=== PATIENT | female | born 2000 | race Two or more races ===

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

== ENCOUNTER 2022-02-16 18:12 | Outpatient (CLI) | payer OTHER, MEDICAID | END 2022-02-16 18:13 | disposition critical access hospital (66) | LOC: EMS 18:12 | DX: O99.891 Other specified diseases and conditions complicating pregnancy (principal); N89.8 Other specified noninflammatory disorders of vagina; R11.0 Nausea; R44.8 Other symptoms and signs involving general sensations and perceptions; Z3A.00 Weeks of gestation of pregnancy not specified | CPT/HCPCS: A0425; A0429 ==

== ENCOUNTER 2022-02-16 18:34 | Emergency (ER) | payer OTHER, MEDICAID ==
--- NOTE | 2022-02-16 18:52 | ED Physician Documentation ---
PD HPI ABD PAIN - Stated complaint Stated Complaint: ABD CRAMPING, BACK PAIN, , INGESTED EDIBLE - Chief complaint Chief Complaint: Abd Pain - History obtained from History obtained from: Patient - Additional information Additional information: This is a otherwise healthy with LMP of approximately December 29 who complains of lower back and abdominal cramping starting yesterday. It is not associated with any bleeding or fluid loss. Of note she did use THC edibles earlier today. Review of Systems Constitutional: denies: Fever, Chills GI: reports: Abdominal Pain, Nausea. denies: Vomiting : reports: Dysuria PD PAST MEDICAL HISTORY - Past Surgical History Past Surgical History: No - Present Medications Home Medications: Ambulatory Orders Medication Instructions Recorded Confirmed Azithromycin [Zithromax] 250 mg PO DAILY #6 tablet 07/16/18 - Allergies Allergies/Adverse Reactions: Allergies Allergy/AdvReac Type Severity Reaction Status Date / Time No Known Drug Allergies Allergy Verified 02/16/22 18:48 - Social History Does the pt smoke?: No Smoking Status: Never smoker Does the pt drink ETOH?: No Does the pt have substance abuse?: No - Immunizations Immunizations are current?: Yes - POLST Patient has POLST: No PD ED PE NORMAL - Vitals Vital signs reviewed: Yes - General General: Alert and oriented X 3, Other (Slightly sleepy) - Abdomen Abdomen: Normal bowel sounds, Soft, Other (Mild bilateral lower quadrant tenderness without surgical signs) - Female Female : Other (Utilizing bedside ultrasound I was able to identify a single live intrauterine with a heart rate of 158.) - Neuro Neuro: Alert and oriented X 3, Normal speech Results - Vitals Vitals: Vital Signs - 24 hr 02/16/22 18:45 Temperature 36.9 C Heart Rate 100 Respiratory 16 Rate Blood Pressure 116/67 O2 Saturation 100 Oxygen O2 Source Room air - Labs Labs: Laboratory Tests 02/16/22 02/16/22 02/16/22 19:01 19:01 19:01 WBC 10.3 RBC 4.67 Hgb 13.0 Hct 39.8 MCV 85.2 MCH 27.8 MCHC 32.7 RDW 14.6 Plt Count 337 MPV 10.3 Neut # (Auto) 8.0 H Lymph # (Auto) 1.6 [place] # (Auto) 0.6 Eos # (Auto) 0.1 Baso # (Auto) 0.0 Absolute Nucleated RBC 0.00 Nucleated RBC % 0.0 Sodium 136 Potassium 3.5 Chloride 103 Carbon Dioxide 25 Anion Gap 8.0 BUN 6 Creatinine 0.7 Estimated GFR (MDRD) 108 Glucose 105 H Calcium 8.9 Total Bilirubin 0.6 AST 33 ALT 41 Alkaline Phosphatase 43 Total Protein 7.1 Albumin 3.9 Globulin 3.2 Albumin/Globulin Ratio 1.2 Lipase 27 HCG, Quant 11572.00 PD Medical Decision Making - ED course ED course: 21-year-old presents sleepy after using cannabis. She does have pelvic pain in . No evidence of ectopic . Appendicitis considered but her pain is not lateralizing to the right and she is not very tender. She did not want any medications here which is reasonable. She was nontender on [place] at 8:20 PM prior to discharge. Departure - Departure Disposition: 01 Home, Self Care Clinical Impression: Cannabis intoxication, Pelvic pain affecting Condition: Good Record reviewed to determine appropriate education?: Yes Instructions: ED Abdominal Pain Female Non-Specific Abdominal Pain Comments: If you are considering termination, the closest [facility] is in [place], the phone number is [phone]. Stay with somebody you trust [facility] given that you are intoxicated with marijuana. Abstain from marijuana in the future. Return for new or worsening symptoms. You can call [facility] at [phone] tomorrow for help with counseling and depression treatment.
[2022-02-16 19:07] LABS: BASOPHILS % (AUTO) 0.4 %; EOSINOPHILS # (AUTO) 0.1 10^3/uL (0.0-0.7); EOSINOPHILS % (AUTO) 0.5 %; HCT - HEMATOCRIT 39.8 % (37.0-47.0); LYMPHOCYTES # (AUTO) 1.6 10^3/uL (1.5-3.5); LYMPHOCYTES % (AUTO) 15.1 %; MEAN CORPUSCULAR HEMOGLOBIN 27.8 pg (27.0-31.0); MEAN CORPUSCULAR HGB CONC 32.7 g/dL (32.0-36.0); MEAN CORPUSCULAR VOLUME 85.2 fL (81.0-99.0); MEAN PLATELET VOLUME 10.3 fL (7.9-10.8); MONOCYTES # (AUTO) 0.6 10^3/uL (0.0-1.0); MONOCYTES % (AUTO) 5.5 %; NEUTROPHILS % (AUTO) 78.2 %; PLT - PLATELET COUNT 337 10^3/uL (130-450); RED BLOOD COUNT 4.67 10^6/uL (4.20-5.40); RED CELL DISTRIBUTION WIDTH 14.6 % (12.0-15.0); WHITE BLOOD COUNT 10.3 x10^3/uL (4.8-10.8)
[2022-02-16 19:20] LABS: ALBUMIN 3.9 g/dL (3.2-5.5); ALBUMIN/GLOBULIN RATIO 1.2 (1.0-2.2); BILIRUBIN,TOTAL 0.6 mg/dL (0.2-1.0); CALCIUM 8.9 mg/dL (8.5-10.3); CREATININE 0.7 mg/dL (0.4-1.0); POTASSIUM 3.5 mmol/L (3.5-5.0); TOTAL PROTEIN 7.1 g/dL (6.7-8.2)
[2022-02-16 20:55] VITALS: BP 106/78
== END 2022-02-16 20:56 | disposition home or self-care (01) ==
LOC: EDUNIT# → ED 18:34
DX: O9A.211 Injury, poisoning and certain other consequences of external causes complicating pregnancy, first trimester (principal); T40.715A Adverse effect of cannabis, initial encounter; F12.90 Cannabis use, unspecified, uncomplicated; O99.891 Other specified diseases and conditions complicating pregnancy; M54.50 Low back pain, unspecified; Z3A.00 Weeks of gestation of pregnancy not specified
CPT/HCPCS: 36415; 80053; 83690; 84702; 85025; 99282; 99283

== ENCOUNTER 2023-04-16 22:50 | Emergency (ER) | payer OTHER, MEDICAID ==
[2023-04-16] MEDS: ONDANSETRON ODT 4 MG TABLET TL STA (23:21)
--- NOTE | 2023-04-16 23:31 | XRAY Report ---
PROCEDURE: Chest 1V INDICATIONS: cough, R chest pain TECHNIQUE: One view of the chest was acquired. COMPARISON: Chest radiograph 04/04/2017 FINDINGS: Surgical changes and devices: None. Lungs and pleura: No pleural effusions or pneumothorax. Lungs are clear. Mediastinum: Mediastinal contours appear normal. Heart size is normal. Bones and chest wall: No suspicious bony lesions. Overlying soft tissues appear unremarkable. IMPRESSION: No acute cardiopulmonary process. Reviewed by: Tyson Schofield MD on 04/16/2023 11:29 PM PDT Approved by: Tyson Schofield MD on 04/16/2023 11:29 PM PDT Station ID: [id number]
--- NOTE | 2023-04-16 23:55 | ED Physician Documentation ---
History of Present Illness - Stated complaint Stated Complaint: RT SIDE/CHEST PX, NAUSEA - Chief complaint Chief Complaint: General - History obtained from History obtained from: Patient - Additonal information Additional information: The patient comes to the emergency department chief complaint of right-sided chest pain for approximately 4 weeks with cough. Patient states it started out seeming like an upper respiratory infection, but now she is just had a dry cough for the last several weeks. She states whenever she coughs or takes a deep breath, she has a pain in her right lower chest, stretching into her right flank. The patient denies any fevers or chills. She states she sometimes feels slightly short of breath. No swelling in her lower extremities. The patient is a smoker. No palpitations. No abdominal pain. The patient does note that she celebrated her 23st birthday yesterday and was drinking quite heavily. Today, she woke up nauseated and has been vomiting throughout the day. No diarrhea. No other complaints at this time. PD PAST MEDICAL HISTORY - Past Medical History Past Medical History: No - Past Surgical History Past Surgical History: No - Present Medications Home Medications: Ambulatory Orders Medication Instructions Recorded Confirmed Benzonatate [Tessalon] 200 mg PO TID PRN #15 cap 04/16/23 - Allergies Allergies/Adverse Reactions: Allergies Allergy/AdvReac Type Severity Reaction Status Date / Time No Known Drug Allergies Allergy Verified 04/16/23 23:02 - Social History Does the pt smoke?: No Smoking Status: Never smoker Does the pt drink ETOH?: No Does the pt have substance abuse?: No - Immunizations Immunizations are current?: Yes - POLST Patient has POLST: No PD ED PE NORMAL - Vitals Vital signs reviewed: Yes - General General: Alert and oriented X 3, No acute distress, Well developed/nourished - HEENT HEENT: Atraumatic, PERRL, EOMI, Moist mucous membranes - Neck Neck: Supple, no meningeal sign - Cardiac Cardiac: RRR, No murmur - Respiratory Respiratory: No respiratory distress, Clear bilaterally, Other (No cough noted in the emergency department.) - Abdomen Abdomen: Soft, Non tender, Non distended - Derm Derm: Normal color, Warm and dry, No rash - Extremities Extremities: No deformity, No edema, No calf tenderness / cord - Neuro Neuro: Other (Alert, grossly intact.) - Psych Psych: Normal mood, Normal affect Results - Vitals Vitals: Vital Signs - 24 hr 04/16/23 04/17/23 22:50 00:06 Temperature 37.1 C 36.9 C Heart Rate 96 85 Respiratory 16 16 Rate Blood Pressure 131/97 H 117/65 O2 Saturation 100 99 Oxygen O2 Source Room air - Rads (name of study) Chest x-ray Relevant Findings:: Final report received, See rad report (Negative) PD Medical Decision Making - ED course Complexity details: reviewed results, re-evaluated patient, considered differential, d/w patient ED course: The patient was worked up with a chest x-ray, which was negative. She was treated with ODT Zofran after vomiting in the emergency department. The patient had pain of the right chest which seemed mechanical in nature based on her report, and had a negative lung exam and x-ray. She did not have any symptoms to indicate PE and her cough and chest pain were longstanding. I did not feel any further emergent workup was indicated in the emergency department. We have discussed the need for follow-up and specifically for a discussion with her primary doctor about smoking cessation. We have discussed what should be the self-limited nature of the patient's vomiting. We discussed the usual indications for return. Departure - Departure Disposition: 01 Home, Self Care Clinical Impression: Chest wall pain Cough Qualifiers: Cough type: subacute Qualified Code(s): R05.2 - Subacute cough Vomiting Qualifiers: Vomiting type: bilious vomiting Nausea presence: with nausea Qualified Code(s): R11.14 - Bilious vomiting Condition: Stable Instructions: ED Strain Chest Wall, ED Smoking Cessation, ED Nausea Vomiting Prescriptions: Benzonatate [Tessalon] 200 mg PO TID PRN #15 cap PRN Reason: Cough Comments: Your x-ray looks great. There is no evidence of anything abnormal in your chest. It is not clear why your cough has dragged on, but certainly, smoking is at least partially contributing to this. It is important that you speak with your doctor about getting help with your smoking. The pain in your chest is most likely coming from a strain of the muscles and other structures of your chest wall. It is very common if you have been coughing hard or had a cough for prolonged period of time. The vomiting could be due to one of the many viruses that are going around, but it also could be from drinking heavily yesterday. Either way, this will pass on its own. You have been given a dose of nausea medicine here and should go home, get some rest, and let your stomach settle down overnight. Do not try to eat or drink anything until the morning. In the morning, take only clear liquids and no foods. By clear liquids, we means water, sports drink, electrolyte drinks, or perhaps edna rolan or popsicles. Do not drink any protein drinks or milk. No smoothies or fruit juices until your vomiting has resolved. When you do return to eating, start with simple starches like saltine crackers and Ramen noodles until you are sure your stomach is ready to handle food. However, you should wait until you have gone at least 24 hours without vomiting before you try to eat anything. If you have further concerns about your cough or would like further evaluation, please follow-up with your primary doctor. A prescription for cough medicine has been electronically transmitted to the [facility] pharmacy in [place] and you may pick this up tomorrow if you wish. Forms: PCP List Discharge Date/Time: 04/17/23 00:09
[2023-04-17 00:15] VITALS: BP 117/65; O2SAT 99
== END 2023-04-17 00:09 | disposition home or self-care (01) ==
LOC: ED 22:50
DX: R05.2 Subacute cough (principal); R11.14 Bilious vomiting
CPT/HCPCS: 71045; 99283; Q0162

== ENCOUNTER 2023-04-25 01:09 | Emergency (ER) | payer OTHER, MEDICAID ==
[2023-04-25 01:28] VITALS: BP 121/80; O2SAT 100
--- NOTE | 2023-04-25 01:34 | ED Physician Documentation ---
History of Present Illness - Stated complaint Stated Complaint: SOA,DIZZY - Chief complaint Chief Complaint: Neuro - History obtained from History obtained from: Patient - Additonal information Additional information: The patient comes to the emergency department chief complaint of feeling dizzy, "breathing funny" and having a headache since quitting smoking a couple weeks ago. The patient has been using 14 mg nicotine patches but states that they do not seem to help the symptoms. She states she has been having some mood swings to since quitting smoking. She states she sometimes has some mucus that feels like he needs to be coughed out of her airways, and makes her feel short of breath. However, she is not short of breath now. No other complaints at this time. PD PAST MEDICAL HISTORY - Past Medical History Past Medical History: No - Past Surgical History Past Surgical History: No - Present Medications Home Medications: Ambulatory Orders Medication Instructions Recorded Confirmed No Known Home Medications 04/25/23 04/25/23 - Allergies Allergies/Adverse Reactions: Allergies Allergy/AdvReac Type Severity Reaction Status Date / Time No Known Drug Allergies Allergy Verified 04/25/23 01:22 - Social History Does the pt smoke?: No Smoking Status: Former smoker Does the pt drink ETOH?: No Does the pt have substance abuse?: No - Immunizations Immunizations are current?: Yes - POLST Patient has POLST: No PD ED PE NORMAL - Vitals Vital signs reviewed: Yes - General General: Alert and oriented X 3, No acute distress - HEENT HEENT: Atraumatic, EOMI, Moist mucous membranes - Neck Neck: Supple, no meningeal sign - Cardiac Cardiac: RRR, No murmur - Respiratory Respiratory: No respiratory distress, Clear bilaterally - Abdomen Abdomen: Soft, Non tender, Non distended - Derm Derm: Normal color, Warm and dry, No rash - Extremities Extremities: No deformity, No edema - Neuro Neuro: Other (Alert, grossly intact) - Psych Psych: Normal mood, Normal affect Results - Vitals Vitals: Vital Signs - 24 hr 04/25/23 01:19 Temperature 36.4 C L Heart Rate 87 Respiratory 16 Rate Blood Pressure 121/80 O2 Saturation 100 Oxygen O2 Source Room air PD Medical Decision Making - ED course Complexity details: considered differential, d/w patient ED course: I discussed with the patient that all of the symptoms are to be expected to some degree of after quitting smoking. I reassured her that things will get better, and have encouraged her to reach out to her doctor for any further concerns. Departure - Departure Disposition: 01 Home, Self Care Clinical Impression: Nicotine dependence Qualifiers: Nicotine product type: unspecified Substance use status: uncomplicated Qualified Code(s): F17.200 - Nicotine dependence, unspecified, uncomplicated Headache Qualifiers: Headache type: unspecified Headache chronicity pattern: acute headache Intractability: not intractable Qualified Code(s): R51.9 - Headache, unspecified Dyspnea Qualifiers: Dyspnea type: unspecified Qualified Code(s): R06.00 - Dyspnea, unspecified Condition: Stable Instructions: ED Dyspnea Shortness of Breath, ED Cephalgia Unspecified Comments: Most likely your symptoms are due to stopping smoking. While the nicotine patches help with this, they do not take all of the symptoms away, as they are lower dose than cigarettes. You have made the right decision to stop smoking and should stick with this. Please be sure you are drinking plenty of fluids and you may take ibuprofen and Tylenol if needed for the headache. As far as your sense of shortness of breath, your lungs are clear with good air movement, your oxygen is 100%, and you are breathing and speaking comfortably in the emergency department. There is no evidence of something significantly wrong with your lungs. Forms: PCP List Discharge Date/Time: 04/25/23 01:42
== END 2023-04-25 01:42 | disposition home or self-care (01) ==
LOC: ED 01:09
DX: R51.9 Headache, unspecified (principal); R06.00 Dyspnea, unspecified; F17.200 Nicotine dependence, unspecified, uncomplicated
CPT/HCPCS: 99281; 99282

== ENCOUNTER 2023-09-05 20:36 | Emergency (ER) | payer MEDICAID, OTHER ==
[2023-09-05 21:14] LABS: BASOPHILS # (AUTO) 0.1 10^3/uL (0.0-0.1); BASOPHILS % (AUTO) 0.5 %; EOSINOPHILS # (AUTO) 0.1 10^3/uL (0.0-0.7); EOSINOPHILS % (AUTO) 0.7 %; HCT - HEMATOCRIT 47.7 % (37.0-47.0); HGB - HEMOGLOBIN 15.6 g/dL (12.0-16.0); LYMPHOCYTES # (AUTO) 2.6 10^3/uL (1.5-3.5); LYMPHOCYTES % (AUTO) 24.3 %; MEAN CORPUSCULAR HEMOGLOBIN 28.5 pg (27.0-31.0); MEAN CORPUSCULAR HGB CONC 32.7 g/dL (32.0-36.0); MEAN CORPUSCULAR VOLUME 87.2 fL (81.0-99.0); MEAN PLATELET VOLUME 10.4 fL (7.9-10.8); MONOCYTES # (AUTO) 0.5 10^3/uL (0.0-1.0); MONOCYTES % (AUTO) 4.6 %; NEUTROPHILS # (AUTO) 7.5 10^3/uL (1.5-6.6); NEUTROPHILS % (AUTO) 69.4 %; PLT - PLATELET COUNT 341 10^3/uL (130-450); RED BLOOD COUNT 5.47 10^6/uL (4.20-5.40); RED CELL DISTRIBUTION WIDTH 12.9 % (12.0-15.0); WHITE BLOOD COUNT 10.7 x10^3/uL (4.8-10.8)
[2023-09-05 21:30] LABS: ALBUMIN 4.7 g/dL (3.2-5.5); ALBUMIN/GLOBULIN RATIO 1.6 (1.0-2.2); BILIRUBIN,TOTAL 0.6 mg/dL (0.2-1.0); CALCIUM 10.6 mg/dL (8.5-10.3); CREATININE 0.9 mg/dL (0.6-1.3); POTASSIUM 3.4 mmol/L (3.5-4.5); TOTAL PROTEIN 7.6 g/dL (6.4-8.9)
[2023-09-05] MEDS: SUCRALFATE 1 GM/10 ML UDC PO STA (21:42)
[2023-09-05] MEDS: FAMOTIDINE 20 MG TABLET PO STA (21:42)
[2023-09-05] MEDS: LIDOCAINE VISCOUS 2% 15 ML UDC MM STA (21:42)
[2023-09-05] MEDS: MAG HYDROX/AL HYDROX/SIMETH 30 ML UDC PO STA (21:42)
--- NOTE | 2023-09-05 21:44 | ED Physician Documentation ---
PD HPI ABD PAIN - Stated complaint Stated Complaint: ABD PX - Chief complaint Chief Complaint: Abd Pain - History obtained from History obtained from: Patient - History of Present Illness Timing - onset: Today Timing - duration: Hours (7) Timing - details: Abrupt onset Quality: Aching, Pain Location: Epigastric Associated symptoms: No: Fever, Nausea, Vomiting, Hematemesis, Diarrhea, Constipation, Melena, Hematochezia, Dysuria, Hematuria, Vaginal bleeding, Vaginal dc - Additional information Additional information: 23-year-old female states that she has epigastric abdominal pain for 6 hours. She states it is stabbing/pressure. She states that occurred after having a bowel movement today. No diarrhea. No constipation. No fevers or chills. No nausea or vomiting. She states that she took Imodium but it did not help the pain. Denies any possibility of . No vaginal bleeding or discharge. No recent travel. No recent antibiotics. Review of Systems Constitutional: denies: Fever, Chills GI: denies: Vomiting, Diarrhea Skin: denies: Rash Musculoskeletal: denies: Neck pain, Back pain Neurologic: denies: Headache PD PAST MEDICAL HISTORY - Past Medical History Past Medical History: No Cardiovascular: None Respiratory: None Neuro: None Endocrine/Autoimmune: None GI: None YOUTH COUNSELOR: None : None HEENT: None Psych: None Musculoskeletal: None Derm: None - Past Surgical History Past Surgical History: No - Present Medications Home Medications: Ambulatory Orders Medication Instructions Recorded Confirmed Ondansetron Odt [Zofran] 4 mg TL Q6H PRN #10 tablet 09/05/23 oxyCODONE [Roxicodone] 5 - 10 mg PO Q6H PRN #14 tablet 09/05/23 MDD 6 - Allergies Allergies/Adverse Reactions: Allergies Allergy/AdvReac Type Severity Reaction Status Date / Time No Known Drug Allergies Allergy Verified 09/05/23 20:46 - Social History Does the pt smoke?: No Smoking Status: Never smoker Does the pt drink ETOH?: No Does the pt have substance abuse?: No - Immunizations Immunizations are current?: Yes - POLST Patient has POLST: No PD ED PE NORMAL - Vitals Vital signs reviewed: Yes - General General: Alert and oriented X 3, No acute distress - HEENT HEENT: Moist mucous membranes - Neck Neck: Supple, no meningeal sign - Cardiac Cardiac: RRR, Strong equal pulses - Respiratory Respiratory: No respiratory distress, Clear bilaterally - Abdomen Abdomen: Soft, Non distended, Other (Tender palpation epigastric. No peritoneal signs. No right upper quadrant tenderness. Negative Alvarez sign.) - Back Back: No CVA TTP, No spinal TTP - Derm Derm: Warm and dry - Extremities Extremities: No edema, No calf tenderness / cord - Neuro Neuro: Alert and oriented X 3 Results - Vitals Vitals: Vital Signs - 24 hr 09/05/23 09/05/23 09/05/23 20:39 21:50 23:07 Temperature 35.9 C L Heart Rate 68 58 L 72 Respiratory 16 16 16 Rate Blood Pressure 127/81 H 124/93 H 121/72 O2 Saturation 100 99 98 Oxygen O2 Source Room air - Labs Labs: Laboratory Tests 09/05/23 09/05/23 09/05/23 21:10 21:10 21:15 WBC 10.7 RBC 5.47 H Hgb 15.6 Hct 47.7 H MCV 87.2 MCH 28.5 MCHC 32.7 RDW 12.9 Plt Count 341 MPV 10.4 Neut # (Auto) 7.5 H Lymph # (Auto) 2.6 [place] # (Auto) 0.5 Eos # (Auto) 0.1 Baso # (Auto) 0.1 Absolute Nucleated RBC 0.00 Nucleated RBC % 0.0 Sodium 137 Potassium 3.4 L Chloride 102 Carbon Dioxide 28 Anion Gap 7.0 BUN 10 Creatinine 0.9 Estimated GFR (MDRD) 79 L Glucose 103 Calcium 10.6 H Total Bilirubin 0.6 AST 20 ALT 45 Alkaline Phosphatase 62 Total Protein 7.6 Albumin 4.7 Globulin 2.9 Albumin/Globulin Ratio 1.6 Lipase 17 Urine Color YELLOW Urine Clarity CLEAR Urine pH 6.0 Ur Specific [place] 1.020 Urine Protein NEGATIVE Urine Glucose (UA) NEGATIVE Urine Ketones NEGATIVE Urine Occult Blood NEGATIVE Urine Nitrite NEGATIVE Urine Bilirubin NEGATIVE Urine Urobilinogen 0.2 (NORMAL) Ur Leukocyte Esterase MODERATE H Urine RBC 0-5 Urine WBC 4-5 Ur Squamous Epith Cells FEW Squamous Urine Bacteria Few Urine Mucus Moderate Strands Ur Microscopic Review INDICATED Urine Culture Comments INDICATED - Rads (name of study) RUQ US Relevant Findings:: Prelim report reviewed (Prelim report given by shredder/granulator operator. Mildly thickened gallbladder wall 3.8 mm. No pericholecystic fluid. Multiple large mobile gallstones. Normal ducts.) PD Medical Decision Making - ED course Complexity details: reviewed results, re-evaluated patient, considered differential, d/w patient, d/w family ED course: 23-year-old female with epigastric abdominal pain. No significant laboratory abnormalities. Normal white blood cell count. Normal LFTs. Right upper quadrant ultrasound does show multiple gallstones, no pericholecystic fluid. The gallstones are mobile. Her gallbladder wall is mildly thickened. Abdominal pain resolved with a dose of oxycodone. Abdomen is soft, nontender nondistended on serial exam. Discussed the case with general surgery on-call, Dr. Celestin, recommends following up in the office for elective cholecystectomy. Strict return precautions were given to the patient including dietary changes and the need for a low-fat diet. Also counseled that this could turn into cholecystitis and that she needs to monitor herself closely for pain that does not resolve, vomiting or fevers. She is to return immediately for the symptoms. Patient counseled regarding signs and symptoms for which I believe and urgent re-evaluation would be necessary. Patient with good understanding of and agreement to plan and is comfortable going home at this time This document was made in part using voice recognition software. While efforts are made to proofread this document, sound alike and grammatical errors may occur. Departure - Departure Disposition: 01 Home, Self Care Clinical Impression: Biliary colic Condition: Good Instructions: ED Gallstone W Biliary Colic Follow-Up: Natasha Celestin DO [Provider Admit Priv/Credential] - Prescriptions: oxyCODONE [Roxicodone] 5 - 10 mg PO Q6H PRN #14 tablet MDD 6 PRN Reason: pain Ondansetron Odt [Zofran] 4 mg TL Q6H PRN #10 tablet PRN Reason: Nausea / Vomiting Comments: Your prescription was sent to [facility] in [place]. As we discussed you have gallstones which are likely causing your abdominal pain. You do not appear to have an infected gallbladder tonight, but if you develop persistent pain, vomiting, fevers or other new or worrisome symptoms, please return immediately to the emergency department for repeat evaluation as this could develop into an infected gallbladder that we will need emergent surgery. Otherwise please cont act the surgical office for a follow-up to discuss having your gallbladder removed. I did speak with the general surgeon on-call Dr. Sabi stout. I am prescribing a short course of narcotic pain medication for you. These are potentially dangerous and addictive medications that should be used carefully. These medications may constipate you. Take an [id number] stool softener (docusate) twice daily with plenty of water while taking these medications. If you go 24 hours without a bowel movement, take [id number]-[id number] miralax, per package instructions. Do not drink or drive while taking these medications. If you received narcotic or sedating medications while in the emergency department, do not drive for 24 hours. Store this medication in a safe, secure place and out of reach of children. It is a violation of federal law to give or sell this medication to another person or to use in a manner other than prescribed. The ED will not refill narcotic prescriptions, including prescriptions lost or stolen. To dispose of unwanted medications: 1. [facility] at [address] in [place] has a medication drop box. They accept prescription medications (in pill form) Monday through Monday 9:00 a.m. to 5:00 p.m. 2. The [facility] [employer] accepts prescription medications (in pill form only) for disposal year round. Call for more information. 3. Contact the [facility] for the next [facility] sponsored prescription drug collection event. , [phone], or [phone]; Forms: PCP List
[2023-09-05 21:58] LABS: BILIRUBIN,URINE NEGATIVE (NEGATIVE); GLUCOSE, URINE (UA) NEGATIVE (NEGATIVE); KETONES,URINE (UA) NEGATIVE (NEGATIVE); LEUKOCYTE ESTERASE, URINE MODERATE (NEGATIVE); NITRITE,URINE NEGATIVE (NEGATIVE); OCCULT BLOOD,URINE NEGATIVE (NEGATIVE); PROTEIN,URINE NEGATIVE (NEGATIVE); UROBILINOGEN,URINE 0.2 (NORMAL) E.U./dL (NORMAL)
[2023-09-05 22:10] LABS: CLARITY,URINE CLEAR (CLEAR); RBC,URINE 0-5 /HPF (0-5); SQUAMOUS EPITHELIAL CELL,UR FEW Squamous (<= Few)
[2023-09-05 22:11] LABS: BACTERIA,URINE Few /HPF (None Seen); MUCUS,URINE Moderate Strands
[2023-09-05] MEDS: ONDANSETRON ODT 4 MG TABLET TL STA (22:51)
[2023-09-05] MEDS: oxyCODONE 5 MG TABLET PO STA (22:51)
[2023-09-05 23:22] VITALS: BP 121/72; O2SAT 98
--- NOTE | 2023-09-05 23:40 | Ultrasound Report ---
PROCEDURE: Abdomen Limited INDICATIONS: RUQ abd pain TECHNIQUE: Real-time focused scanning was performed of the abdomen, with image documentation. COMPARISONS: None. FINDINGS: Liver: Liver is normal in size and homogeneous in echotexture. Gallbladder: Multiple shadowing gallstones are present. Gallbladder wall is mildly thickened at 3.9 m m. No pericholecystic fluid. Sonographic Alvarez sign is negative. Biliary ducts: Intrahepatic bile ducts are non-dilated. Extrahepatic bile duct caliber measures 4.1 mm. Normal is 6-7 mm or less in diameter, or 10 mm or less post-cholecystectomy. Pancreas: Visualized portions of the pancreas are sonographically normal. Right kidney: Normal in size and echotexture. Right kidney measures 10.4 cm long. No hydronephrosis or nephrolithiasis. No solid masses. No complex renal cystic lesions which require follow-up. IVC: Intrahepatic inferior vena cava is patent. Miscellaneous: No free abdominal fluid. IMPRESSION: Cholelithiasis and mild gallbladder wall thickening, which are equivocal for acute cholecystitis. No pericholecystic fluid. Sonographic Alvarez sign is negative. Recommend correlation with clinical findi ngs and laboratory values. Reviewed by: Tyson Schofield MD on 09/05/2023 11:38 PM PDT Approved by: Tyson Schofield MD on 09/05/2023 11:38 PM PDT Station ID: [id number]
== END 2023-09-05 23:37 | disposition home or self-care (01) ==
LOC: ED 20:36
DX: K80.50 Calculus of bile duct without cholangitis or cholecystitis without obstruction (principal)
CPT/HCPCS: 36415; 76705; 80053; 81001; 83690; 85025; 87086; 99284; A9270; Q0162; 81003

== ENCOUNTER 2023-09-07 02:14 | Emergency (ER) | payer OTHER ==
[2023-09-07 02:56] LABS: BASOPHILS % (AUTO) 0.4 %; EOSINOPHILS # (AUTO) 0.2 10^3/uL (0.0-0.7); EOSINOPHILS % (AUTO) 1.7 %; HCT - HEMATOCRIT 45.7 % (37.0-47.0); HGB - HEMOGLOBIN 14.7 g/dL (12.0-16.0); LYMPHOCYTES % (AUTO) 32.3 %; MEAN CORPUSCULAR HEMOGLOBIN 28.5 pg (27.0-31.0); MEAN CORPUSCULAR HGB CONC 32.2 g/dL (32.0-36.0); MEAN CORPUSCULAR VOLUME 88.7 fL (81.0-99.0); MEAN PLATELET VOLUME 10.3 fL (7.9-10.8); MONOCYTES # (AUTO) 0.6 10^3/uL (0.0-1.0); MONOCYTES % (AUTO) 6.6 %; NEUTROPHILS # (AUTO) 5.5 10^3/uL (1.5-6.6); NEUTROPHILS % (AUTO) 58.5 %; PLT - PLATELET COUNT 321 10^3/uL (130-450); RED BLOOD COUNT 5.15 10^6/uL (4.20-5.40); RED CELL DISTRIBUTION WIDTH 12.9 % (12.0-15.0); WHITE BLOOD COUNT 9.4 x10^3/uL (4.8-10.8)
[2023-09-07 03:12] LABS: ALBUMIN 4.4 g/dL (3.2-5.5); ALBUMIN/GLOBULIN RATIO 1.7 (1.0-2.2); BILIRUBIN,TOTAL 0.7 mg/dL (0.2-1.0); CALCIUM 9.7 mg/dL (8.5-10.3); CREATININE 0.9 mg/dL (0.6-1.3); POTASSIUM 3.7 mmol/L (3.5-4.5)
--- NOTE | 2023-09-07 03:23 | ED Physician Documentation ---
PD HPI ABD PAIN - Stated complaint Stated Complaint: DIZZY/N - Chief complaint Chief Complaint: Neuro - History obtained from History obtained from: Patient - Additional information Additional information: 23-year-old female presents for medical gastric abdominal pain.Patient was seen 2 days ago at the [facility] emergency department for similar and was diagnosed with gallstones, subsequently discharged with oxycodone and zofran. She was given general surgery follow-up referral number and discharged home. Symptoms began again tonight. Did not take the medications she was prescribed Review of Systems Constitutional: denies: Fever, Chills GI: reports: Abdominal Pain, Nausea, Vomiting. denies: Abdominal Swelling, Constipation, Diarrhea Neurologic: denies: Generalized weakness, Focal weakness, Numbness, Difficulty speaking, Near syncope PD PAST MEDICAL HISTORY - Past Medical History Past Medical History: No Cardiovascular: None Respiratory: None Neuro: None Endocrine/Autoimmune: None GI: None TUCKPOINTER: None : None HEENT: None Psych: None Musculoskeletal: None Derm: None - Past Surgical History Past Surgical History: No - Present Medications Home Medications: Ambulatory Orders Medication Instructions Recorded Confirmed Ondansetron Odt [Zofran] 4 mg TL Q6H PRN #10 tablet 09/05/23 09/07/23 oxyCODONE [Roxicodone] 5 - 10 mg PO Q6H PRN #14 tablet 09/05/23 09/07/23 MDD 6 - Allergies Allergies/Adverse Reactions: Allergies Allergy/AdvReac Type Severity Reaction Status Date / Time No Known Drug Allergies Allergy Verified 09/07/23 02:28 - Social History Does the pt smoke?: No Smoking Status: Never smoker Does the pt drink ETOH?: Yes ETOH Use: Liquor Does the pt have substance abuse?: No - Immunizations Immunizations are current?: Yes - POLST Patient has POLST: No PD ED PE NORMAL - Vitals Vital signs reviewed: Yes - General General: Alert and oriented X 3, No acute distress, Well developed/nourished - Neck Neck: Supple, no meningeal sign - Cardiac Cardiac: RRR, Strong equal pulses - Respiratory Respiratory: No respiratory distress, Clear bilaterally - Abdomen Abdomen: Soft, Non distended, Other (generalized upper abdominal tenderness to deep palpation without rebound or guarding) - Derm Derm: Normal color, Warm and dry, No rash - Neuro Neuro: Alert and oriented X 3, pushcart peddler 2-12 intact, No motor deficit, Normal speech Results - Vitals Vitals: Oxygen O2 Source Room air - Labs Labs: Laboratory Tests 09/07/23 09/07/23 02:45 02:45 WBC 9.4 RBC 5.15 Hgb 14.7 Hct 45.7 MCV 88.7 MCH 28.5 MCHC 32.2 RDW 12.9 Plt Count 321 MPV 10.3 Neut # (Auto) 5.5 Lymph # (Auto) 3.0 [place] # (Auto) 0.6 Eos # (Auto) 0.2 Baso # (Auto) 0.0 Absolute Nucleated RBC 0.00 Nucleated RBC % 0.0 Sodium 138 Potassium 3.7 Chloride 104 Carbon Dioxide 27 Anion Gap 7.0 BUN 16 Creatinine 0.9 Estimated GFR (MDRD) 79 L Glucose 100 Calcium 9.7 Total Bilirubin 0.7 AST 72 H ALT 92 H Alkaline Phosphatase 57 Total Protein 7.0 Albumin 4.4 Globulin 2.6 Albumin/Globulin Ratio 1.7 Lipase 22 PD Medical Decision Making - ED course Complexity details: reviewed old records, reviewed results, re-evaluated patient, considered differential, d/w patient ED course: Nontoxic patient with episode of abdominal pain with nausea and vomiting. Abdomen soft, no peritoneal signs. Patient does have known cholelithiasis. Laboratory work reviewed, slight increase in liver enzymes today compared to 2 days prior, however T. bili is still 0.7. No leukocytosis. Unable to obtain ultrasound due to timing. Attempted to reach out to general surgery, however despite numerous attempts never received call back. Patient has remained asymptomatic in the ED room throughout her stay in the department. Repeat abdominal exam soft, nontender. Patient informed of lab results, I again encouraged general surgery follow-up so that an elective cholecystectomy can be scheduled. Patient has Zofran and oxycodone at home that she was encouraged to take if she is symptomatic. Departure - Departure Disposition: Home, Self Care Clinical Impression: Abdominal pain Condition: Stable Instructions: ED Gallstone W Biliary Colic Follow-Up: Natasha Celestin DO [Provider Admit Priv/Credential] - Comments: Take the prescribed medications for pain and nausea as needed. Follow-up with jorge blake surgeon listed below to discuss the possibility of your gallbladder being removed. Today your liver enzymes were slightly higher than when you were here several days ago, however based on your laboratory work your gallbladder is not infected. Discharge Date/Time: 09/07/23 05:17
[2023-09-07 05:17] VITALS: BP 122/72; O2SAT 99
== END 2023-09-07 05:17 | disposition home or self-care (01) ==
LOC: ED 02:14
DX: R10.9 Unspecified abdominal pain (principal); R11.2 Nausea with vomiting, unspecified; K80.20 Calculus of gallbladder without cholecystitis without obstruction
CPT/HCPCS: 36415; 80053; 83690; 85025; 93005; 99283